=== PATIENT | male | born 1950 | race Caucasian/White ===

== ENCOUNTER 2022-03-25 13:31 | Emergency (ER) | payer OTHER, MEDICAID ==
[~2022-03-25] VITALS: Ht 175.3 cm; Wt 106.1 kg
[2022-03-25 13:50] VITALS: BP_SYST 138
--- NOTE | 2022-03-25 15:30 | NUR ---
Dr Ahmadi evaluating patient in the triage room
[2022-03-25] MEDS ORDERED: IBUP-1969 PO (16:52)
--- NOTE | 2022-03-25 17:08 | NUR ---
Pt brought by self,A&Ox4, pt presents to ER with L eye, L leg chronic pain, pt requesting oxycodone 5-325 mg Rx refill, VSS, respirations even and unlabored, will cont to monitor.
[2022-03-25 17:11] VITALS: BP_SYST 138
--- NOTE | 2022-03-25 17:11 | NUR ---
Patient given written and verbal discharge instructions and verbalizes understanding. ER MD discussed with patient the results and treatment provided. Patient in stable condition. ID arm band removed. Rx of Ibuprofen given. Patient educated on pain management and to follow up with PMD. Pain Scale 0/10. Opportunity for questions provided and answered. Medication side effect fact sheet provided.
== END 2022-03-25 17:11 | disposition home or self-care (01) ==
LOC: SED 13:31
DX: Z76.0 Encounter for issue of repeat prescription (principal); M79.662 Pain in left lower leg; J44.9 Chronic obstructive pulmonary disease, unspecified; I10 Essential (primary) hypertension; Z79.899 Other long term (current) drug therapy
CPT/HCPCS: 99282